=== PATIENT | female | born 1995 | race American Indian/Alaskan Native ===

== ENCOUNTER 2019-12-04 00:51 | Inpatient (IN) | payer OTHER ==
[2019-12-04] MEDS ORDERED: LACTATED RINGERS 1,000 ML IV ONE (01:47)
[2019-12-04 02:42] LABS: Bilirubin,Urine NEG (Negative); Blood,Urine MOD (Negative); Color,Urine Yellow (Yellow); Mucus,Urine FEW /HPF; Protein,Urine <15 mg/dL mg/dL (Negative)
[2019-12-04 02:43] LABS: WBC,Urine > 182.0 /HPF (0.0-6.0)
[2019-12-04 02:58] LABS: Amphetamine Screen,Urine PRESUMPTIVE NEGATIVE; Benzodiazepines Screen,Urine PRESUMPTIVE NEGATIVE; Cannabinoid Screen,Urine PRESUMPTIVE NEGATIVE; Cocaine Screen,Urine PRESUMPTIVE NEGATIVE; Methadone Screen,Urine PRESUMPTIVE NEGATIVE; Opiate Screen,Urine PRESUMPTIVE NEGATIVE
[2019-12-04] MEDS ORDERED: BETAMET ACET/BETAMET NA PH 6 MG/ML INJ 5 ML MDV IM ONE ×3 (04:14→04:36)
[2019-12-04] MEDS ORDERED: OXYTOCIN 20 UNIT/1000ML DRIP 20,000 MILLIUNITS/1,000 ML BAG IV ONE (04:19)
[2019-12-04] MEDS ORDERED: AMPICILLIN/NS 2 GM/100 ML 2 GM/100 ML BAG IV ONE (04:19)
[2019-12-04 04:48] LABS: Basophils % (Auto) 0.2 % (0.0-1.8); Eosinophils # (Auto) 0.1 K/mm3 (0.0-0.4); Eosinophils % (Auto) 0.8 % (0.0-4.3); Hematocrit 30.1 % (30.3-42.9); Hemoglobin 9.6 gm/dl (10.1-14.3); Lymphocytes # (Auto) 2.8 K/mm3 (1.2-5.4); Lymphocytes % (Auto) 16.2 % (13.4-35.0); Mean Corpuscular HGB Conc 32 % (30-34); Mean Corpuscular Volume 76 fl (79-97); Monocytes # (Auto) 1.5 K/mm3 (0.0-0.8); Monocytes % (Auto) 8.6 % (0.0-7.3); Platelet Count 248 K/mm3 (140-440); Red Blood Count 3.94 M/mm3 (3.65-5.03); Red Cell Distribution Width 15.9 % (13.2-15.2)
[2019-12-04] MEDS ORDERED: MAGNESIUM SULFATE 40GM/1000ML 40 GM/1,000 ML BAG IV ONE (04:50)
[2019-12-04] MEDS ORDERED: MAGNESIUM SULFATE 4 GM/100 ML BAG IV ONE ×2 (04:50→04:56)
[2019-12-04] MEDS ORDERED: MAGNESIUM SULFATE 40GM/1000ML 40 GM/1,000 ML BAG IV SCH (05:00)
--- NOTE | 2019-12-04 05:09 | History and Physical Report ---
History of Present Illness Date of examination: 12/04/19 (arrived to Triage with c/o ctx) Date of admission: 12/04/19 01:48 History of present illness: Pt here from [facility] Pt states she is 30 weeks Has been seeing her OB there [id number]. 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 Pt reports she had a blood transfusion after c/s Pt denies medical hx; denies ETOH,drug,smoking Past History - Obstetrical History Expected Date of Delivery: 02/09/20 Actual Gestation: 30 Week(s) 3 Day(s) : 3 Para: 1 (previous c/s) Hx # Term Pregnancies: 1 Number of Pregnancies: 0 Spontaneous Abortions: 0 Induced : 1 Number of Living Children: 1 Medications and Allergies Allergies Allergy/AdvReac Type Severity Reaction Status Date / Time tree and shrub pollen Allergy Unknown Verified 12/04/19 01:47 Home Medications Medication Instructions Recorded Confirmed Last Taken Type Nitrofurantoin [place]/M-Cryst 100 mg PO Q12HR #10 capsule 12/04/19 Unknown Rx [Macrobid] Active Meds: Active Medications Magnesium Sulfate (Magnesium Sulfate 4gm/100ml) 4 gm in 100 mls @ 300 mls/hr IV ONCE ONE Stop: 12/04/19 05:15 Magnesium Sulfate (Magnesium Sulfate 40gm/1000ml) 40 gm in 1,000 mls @ 50 mls/hr IV DIRECT MARLO - Vital Signs Vital signs: Vital Signs Pulse Pulse Ox 109 H 97 12/04/19 01:10 12/04/19 01:10 Temp Pulse Resp BP Pulse Ox 98.4 F 104 H 16 110/66 97 12/04/19 01:15 12/04/19 04:00 12/04/19 01:15 12/04/19 04:00 12/04/19 01:15 - Physical Exam Breasts: Positive: normal Cardiovascular: Regular rate, Normal S1, Normal S2 Lungs: Positive: Normal air movement Abdomen: Positive: normal appearance, soft, normal bowel sounds. Negative: distention, tenderness Genitourinary (Female): Positive: normal external genitalia (no ulcerations note d @ time of exam) Vulva: both: normal Vagina: Positive: normal moisture. Negative: discharge Cervix: Negative: lesion, discharge Uterus: Positive: normal size, normal contour Adnexa: both: normal Anus/Rectum: Positive: normal perianal skin, heme negative. Negative: rectal mass, hemorrhoids Extremities: Positive: normal Deep Tendon Reflex Grade: Normal +2 - Obstetrical FHR: category 1 Uterine Contraction Monitor Mode: External Cervical Dilatation: 3 (very thin lower uterine segment) Cervical Effacement Percentage: 100 (intact) station: -2 Uterine Contraction Pattern: Regular Uterine Tone Measurement Phase: Resting Uterine Contraction Intensity: Moderate Results Result Diagrams: 12/04/19 Unknown Abnormal lab results 12/04/19 12/04/19 Range/Units 01:45 Unknown [place] % (Auto) 8.6 H (0.0-7.3) % [place] # 1.5 H (0.0-0.8) K/mm3 Seg Neutrophils % 74.2 H (40.0-70.0) % Seg Neutrophils # 12.7 H (1.8-7.7) K/mm3 Urine WBC (Auto) > 182.0 H (0.0-6.0) /HPF All other labs normal. OB labs ordered Assessment and Plan - Patient Problems (1) 30 weeks gestation of Onset Date: ~12/04/19 Current Visit: Yes Status: Acute Plan to address problem: Pt here with c/o ctx Pt had been receiving care in [facility] Records on chart. Pt stated @ her last visit 11-12-19 she was measuring small Today US is 12days < than expected. BMZ given MGSO4 started made aware All orders in EMR. (2) Herpes Onset Date: ~12/04/19 Current Visit: Yes Status: Acute Plan to address problem: Perineum inspected no evidence of outbreak Pt states "last test" was negative. Will start Valtrex 1,000mg po for prophylaxis (3) Previous section Onset Date: ~12/04/19 Current Visit: Yes Status: Acute Plan to address problem: Pt desires a MIRANDA aware. C/S was in 2010 for HSV outbreak @ term
[2019-12-04 05:13] LABS: Hepatitis C Virus Antibody Non-Reactive (NonReactive)
[2019-12-04] MEDS ORDERED: TERBUTALINE 1 MG/1 ML INJ ONE (05:24)
--- NOTE | 2019-12-04 06:14 | Ultrasound Report ---
ULTRASOUND OBSTETRIC, limited Indication: wellbeing, labor Findings: There is a single intrauterine . BPD = 7.2 cm = 28 weeks, 6 day(s). Head circumference = 26.3 cm = 28 weeks, 5 day(s). Abdominal circumference = 24.4 cm = 28 weeks, 4 day(s). Femur length = 5.4 cm = 28 weeks, 4 day(s). Overall estimated sonographic age = 28 weeks, 5 day(s). heart rate is 143 beats per minute. Estimated weight is 1258 grams position is cephalic. Placenta is anterior and grade 1 . Amniotic fluid volume appears normal. Amniotic fluid index is 15.2 cm Impression: 1. Single living intrauterine with estimated sonographic age of 28 weeks, 5 day(s). 2. No sonographic abnormality identified. BIOPHYSICAL PROFILE FINDINGS: breathing movement: 2/2 movement: 2/2 posture and tone: 2/2 Qualitative amniotic fluid volume: 2/2 IMPRESSION: Total score for biophysical profile is 8/8 heart rate is 143 bpm Signer Name: Dank Murcia MD Signed: 12/04/2019 6:10 AM Workstation Name: [id number]
--- NOTE | 2019-12-04 06:59 | Event Note ---
Date: 12/04/19 (pt called out c/o pressure) ctx Q3-6 mod SVE 3,100,-[address]. Pt made aware that we do not do . She voiced understanding.
--- NOTE | 2019-12-04 07:07 | Anesthesia Consultation ---
Anesthesia Consult and Med Hx Date of service: 12/04/19 - Airway Anesthetic Teeth Evaluation: Good ROM Head & Neck: Adequate Mental/Hyoid Distance: Adequate Mallampati Class: Class II Intubation Access Assessment: Good - Pulmonary Exam CTA: Yes - Cardiac Exam Cardiac Exam: RRR - Pre-Operative Health Status ASA Pre-Surgery Classification: ASA2, Emergency Proposed Anesthetic Plan: Spinal - Pulmonary Hx Asthma: Yes (albuterol used last week) - Cardiovascular System Hx Hypertension: No - Central Nervous System Hx Seizures: No Hx Psychiatric Problems: No - Endocrine Hx Renal Disease: No Hx Hypothyroidism: No Hx Hyperthyroidism: No - Hematic Hx Anemia: Yes Hx Sickle Cell Disease: No - Other Systems Hx Alcohol Use: No
[2019-12-04] MEDS ORDERED: PROMETHAZINE 25 MG RECT SUPP PR PRN (07:08)
[2019-12-04] MEDS ORDERED: PROMETHAZINE 25 MG TAB PO PRN (07:08)
[2019-12-04] MEDS ORDERED: NALOXONE 0.4 MG/1 ML INJ IV PRN ×2 (07:08→10:02)
[2019-12-04] MEDS ORDERED: ONDANSETRON 4 MG/2 ML INJ IV PRN (07:08)
[2019-12-04] MEDS ORDERED: HYDROmorphone 1 MG/1 ML INJ IV PRN (07:08)
[2019-12-04] MEDS ORDERED: METOCLOPRAMIDE 10 MG/2 ML INJ IV ONE (08:00)
[2019-12-04] MEDS ORDERED: BICITRA ORAL LIQD 30ML PO ONE (08:00)
[2019-12-04] MEDS ORDERED: BUTORPHANOL 2 MG/1 ML INJ IV PRN (08:00)
[2019-12-04] MEDS ORDERED: fentaNYL 100 MCG/2 ML INJ IV SCH (08:00)
--- NOTE | 2019-12-04 08:07 | Event Note ---
Date: 12/04/19 patient states ctx are more painful and closer together. SVE done, no progress noted. No evidence of SROM, + light bloody show with SVE. discussed plan with Dr. Crisostomo to continue with mag sulfate for steroids. Patient's mother identified her self as "Marilin" on speaker phone, she was updated on plan of care with patient and s/o aware. Patient may have IV sedation after signing consents. s/o in room is her BOYFRIEND and they are not . All questions addressed.
[2019-12-04] MEDS: FAMOTIDINE 20 MG/2 ML INJ IV SCH (08:20)
[2019-12-04] MEDS ORDERED: METOCLOPRAMIDE 10 MG/2 ML INJ ONE (08:41)
[2019-12-04] MEDS ORDERED: OXYTOCIN 20 UNIT/1000ML DRIP 40,000 MILLIUNITS/2,000 ML BAG IV ONE (08:41)
[2019-12-04] MEDS ORDERED: FAMOTIDINE 20 MG/2 ML INJ IV ONE (08:41)
[2019-12-04] MEDS ORDERED: BICITRA ORAL LIQD 30ML ONE (08:41)
[2019-12-04] MEDS ORDERED: ceFAZolin/Water 2 GM/20 ML 2 GM/20 ML SYRINGE IV ONE (08:41)
[2019-12-04] MEDS ORDERED: DEXMEDETOMIDINE 200 MCG/2 ML VIAL IV ONE ×2 (08:53→10:25)
[2019-12-04] MEDS ORDERED: ONDANSETRON 4 MG/2 ML INJ ONE (08:53)
[2019-12-04] MEDS ORDERED: METHYLERGONOVINE MALEATE 0.2 MG/ML VIAL IM ONE ×2 (09:07→12:45)
[2019-12-04] MEDS ORDERED: miSOPROStol 200 MCG TAB ONE (09:07)
[2019-12-04] MEDS ORDERED: PROPOFOL 200 MG/20 ML VIAL IV ONE (09:15)
[2019-12-04] MEDS ORDERED: SODIUM CHLORIDE 0.9% IRR 1,500 ML BOTTLE IR ONE (09:21)
[2019-12-04] MEDS ORDERED: WATER FOR IRRIG STERILE 1,500 ML BOTTLE IR ONE (09:21)
[2019-12-04] MEDS ORDERED: MIDAZOLAM 2 MG/2 ML INJ ONE (09:26)
[2019-12-04] MEDS ORDERED: fentaNYL 100 MCG/2 ML INJ ONE (09:27)
[2019-12-04] MEDS ORDERED: dexAMETHasone 20 MG/5 ML VIAL ONE ×2 (09:35→10:25)
[2019-12-04] MEDS ORDERED: valACYclovir 500 MG TAB PO SCH (10:00)
[2019-12-04] MEDS ORDERED: AMPICILLIN/NS 1 GM/50 ML 1 GM/50 ML BAG IV SCH (10:00)
[2019-12-04] MEDS ORDERED: WITCH HAZEL/ GLYCERIN PAD TP PRN (10:02)
[2019-12-04] MEDS ORDERED: LANOLIN/ZINC/DIMETHICONE (LANSINOH) 7 GM TP PRN (10:02)
--- NOTE | 2019-12-04 10:08 | Event Note ---
Date: 12/04/19 At the time of my exam just prior to the c/s pt continued to have pain and there was no cervix that could be palpated only a bulging bag of water and presenting part seemed to be vtx but I was not clear. It was at this time an urgent c/s was called. No bleeding was noted on my exa, but possible abruption was noted on c/s(see op note).
--- NOTE | 2019-12-04 10:09 | Operative Report ---
Operative Report Operative Report: Date of procedure: 12/04/2019 Pre-operative diagnosis: 30.3 weeks gestation Previous section labor Post-operative diagnosis: Same plus possible placental abruption Procedure name(s): Repeat low transverse section via Pfannenstiel skin incision Surgeon: Dr. Crisostomo Continuous Improvement Specialist: NADIR Anesthesia: Gen. endotracheal anesthesia due to failed spinal EBL: 700 mL Urine output: 400 mL of clear urine out at the end of procedure Fluids: 2 L Findings: Liveborn female weight 1.15 kg Apgars of 5 and 8 at one and 5 minutes Grossly normal fallopian tubes and ovaries bilaterally Well-developed lower uterine segment With delivery of placenta that was moderate amount of bright red blood behind the placenta suspicious for possible placenta abruption Indications: Patient presented to triage complaining of painful uterine contractions that got progressively worse. Patient was placed on magnesium sulfate as well as was given terbutaline and was noted to have continued contractions. The patient was evaluated she was noted to have cervical dilation to the point where no cervix could be palpated and amniotic fluid membranes were bulging in the vaginal canal. It was also difficult to assess presenting part. Decision was made at this time to proceed to the operating room with urgent section. All risks benefits and alternatives were discussed with patient. She expressed understanding. Consents were signed and placed on the chart. Procedure: Patient was taking to the operating room. Patient was then prepped and draped in sterile fashion.after spinal anesthesia was found not to be adequate she was then placed under general endotracheal anesthesia. A low transverse skin incision was made with the scalpel through previous incisional scar and carried down to the underlying layer of fascia with the Apple. The fascia was then incised in the midline and this incision was extended bilaterally with the scalpel.The superior aspect of the fascia was grasped with Erin clamps tented upward and dissected off of the anterior rectus muscles with the scalpel. In similar fashion the inferior aspect of the fascia was grasped with Erin clamps tented upward and dissected off of the anterior rectus muscles. The rectus muscles were then bluntly divided in the midline. The peritoneum was identified and entered into sharply. A lower transverse uterine incision was made with the scalpel and extended bilaterally with blunt dissection. Artificial rupture of membranes was performed yielding clear amniotic fluid. The 's head was then delivered atraumatically. The anterior shoulder and rest of infant delivered without difficulty. The umb ilical cord was clamped x2. The cord was cut. The infant was then placed in sterile bassinet. The cord blood was collected. The placenta was manually extracted in its entirety. The uterus was exteriorized and cleared of all clots and debris. The uterine incision was closed using 0 Vicryl in a running locking fashion. A second imbricating layer of the same suture was then created. The posterior cul-de-sac was copiously irrigated. The uterus was returned to the abdomen. The gutters were also irrigated. The anterior rectus muscles were reapproximated using 3-0 Vicryl. The anterior rectus fascia was reapproximated using 0 Vicryl in a running fashion. The subcuticular fat was reapproximated using 2-0 Vicryl in a running fashion. The skin was reapproximated with 4-0 Monocryl in a subcuticular stitch. The patient tolerated the procedure well. Sponge lap and needle counts were all correct x3. Patient was taken to the recovery room awake and in stable condition.
[2019-12-04] MEDS ORDERED: SODIUM CHLORIDE 0.9% 100 ML ONE (10:25)
[2019-12-04] MEDS ORDERED: BUPIVACAINE/PF (0.5%) 5 MG/1 ML 30 ML VIAL INFILTRATI ONE (10:25)
[2019-12-04] MEDS ORDERED: LIDOCAINE MPF (2%) 20 MG/1 ML VIAL 5 ML ONE (10:26)
[2019-12-04] MEDS ORDERED: SUCCINYLCHOLINE CHLORIDE 200 MG/10 ML INJ MDV ONE (10:30)
[2019-12-04] MEDS ORDERED: PHENYLEPHRINE/NS 1,000 MCG/10 ML SYRINGE (OR USE) IV ONE (10:30)
[2019-12-04] MEDS: HYDROmorphone 1 MG/1 ML INJ IV PRN ×2 (10:50→11:20)
[2019-12-04] MEDS ORDERED: OXYTOCIN 20 UNIT/1000ML DRIP 20 UNITS/1,000 ML BAG IV SCH (11:00)
[2019-12-04] MEDS ORDERED: D5W/LACTATED RINGERS 1,000 ML IV SCH (11:00)
--- NOTE | 2019-12-04 11:43 | Post Anesthesia Evaluation ---
- Post Anesthesia Evaluation Patient Participated: Yes Airway Patent: Yes Stable Respiratory Function: Yes Nausea/Vomiting: No Temp > 96.8F: Yes Pain Manageable: Yes (QL block for PoP) Adequeate Hydration: Yes Anesthesia Complications: No Block Receding Appropriately: Yes Patient on Ventilator: No
--- NOTE | 2019-12-04 11:44 | Anesthesia Day of Surgery ---
Anesthesia Day of Surgery - Day of Surgery Patient Examined: Yes Patient H&P Reviewed: Yes Patient is NPO: Yes
[2019-12-04] MEDS: KETOROLAC 30 MG/1 ML INJ IV PRN ×2 (15:11→23:52)
[2019-12-04] MEDS: ceFAZolin/NS 1 GM/50 ML 1 GM/50 ML BAG IV SCH (18:45)
[2019-12-04] MEDS: oxyCODONE /ACETAMINOPHEN 5-325MG TAB PO PRN (18:45)
[2019-12-04 22:37] LABS: Hematocrit 27.2 % (30.3-42.9); Hemoglobin 8.8 gm/dl (10.1-14.3)
[2019-12-05] MEDS: ceFAZolin/NS 1 GM/50 ML 1 GM/50 ML BAG IV SCH (02:52)
[2019-12-05] MEDS: IBUPROFEN 800 MG TAB PO PRN (08:12)
--- NOTE | 2019-12-05 08:23 | Progress Note ---
Assessment and Plan - Patient Problems (1) Herpes Onset Date: ~12/04/19 Current Visit: Yes Status: Acute (2) delivery delivered Onset Date: ~12/04/19 Current Visit: Yes Status: Acute Plan to address problem: pt doing very well this AM. Req a work excuse for her job. Pt states she will go back to [place] to live. The FOB resides here in area and will come to see baby while in NICU. VSS FF below umb Lochia small Dressing D&I Stable S/p repeat c/s P; Continue pathway Advance as tolerated. Subjective - Subjective Date of service: 12/05/19 (Pt Sitting on edge of bed No c/o voiced) Principal diagnosis: Day #1 s/p Repeat c/s @ 30 weeks gestation Active labor Interval history: Pt here from [facility] Pt states she is 30 weeks Has been seeing her OB there [id number]. 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 Pt reports she had a blood transfusion after c/s Pt denies medical hx; denies ETOH,drug,smoking Patient reports: appetite normal, voiding normally, pain well controlled, ambulating normally : in NICU (stable per pt) Objective - Vital Signs Latest vital signs: Vital Signs Temp Pulse Resp BP BP BP Pulse Ox 12/05/19 04:36 98.0 F 82 18 95/47 95 12/05/19 01:30 98 F 88 18 100/47 96 12/04/19 20:52 98.4 F 98 H 20 107/51 94 12/04/19 18:45 20 12/04/19 15:34 98.0 F 100 H 18 116/69 94 12/04/19 15:11 20 12/04/19 14:21 97.2 F L 105 H 20 102/54 99 12/04/19 11:20 115 H 19 99/53 94 12/04/19 11:15 101 H 22 107/61 94 12/04/19 11:10 107 H 29 H 113/64 94 12/04/19 11:05 104 H 22 113/64 94 12/04/19 11:00 110 H 17 107/55 94 12/04/19 10:55 113 H 24 107/56 94 12/04/19 10:50 113 H 17 92/35 94 12/04/19 10:45 117 H 28 H 85/33 94 12/04/19 10:40 112 H 17 94/55 94 12/04/19 10:35 114 H 25 H 96/50 94 12/04/19 10:30 107 H 18 105/45 94 12/04/19 10:25 105 H 27 H 101/49 94 12/04/19 10:20 97.4 F L 106 H 33 H 107/51 94 12/04/19 10:17 97.4 F L 106 H 33 H 109/52 94 12/04/19 08:36 127 H 122/67 12/04/19 08:32 125 H 126/60 Intake and Output 12/04/19 12/05/19 12/05/19 22:59 06:59 14:59 Intake Total 530 480 Output Total 500 400 Balance 30 80 Intake: IV 50 ANCEF/NS 1 GM/50 ML 1 gm 50 In 50 ml @ 100 mls/hr IV Q8H [facility] Rx#:[id number] Oral 240 Intake, Free Water 240 480 Output: Urine 500 400 Indwelling Catheter 500 Void 400 Other: Total, Intake Amount 240 Total, Output Amount 100 200 - Exam Breasts: Present: normal Cardiovascular: Present: Regular rate Lungs: Present: Normal air movement Abdomen: Present: normal appearance, soft Uterus: Present: normal, fundal height below umbilicus Extremities: Present: normal Deep Tendon Reflex Grade: Normal +2 Incision: Present: normal, dry, intact, dressed (to be removed this AM) - Labs Labs: Abnormal lab results 12/04/19 12/04/19 Range/Units 08:14 21:52 Hgb 8.8 L (10.1-14.3) gm/dl Hct 27.2 L (30.3-42.9) % Magnesium 4.40 H (1.7-2.3) mg/dL
[2019-12-05] MEDS: DOCUSATE SODIUM 100 MG CAP PO SCH ×2 (09:53→22:06)
[2019-12-05] MEDS: FERROUS SULFATE 325 MG TAB PO SCH ×2 (09:54→22:06)
[2019-12-05] MEDS: FAMOTIDINE 20 MG/2 ML INJ IV SCH (10:02)
[2019-12-05] MEDS: oxyCODONE /ACETAMINOPHEN 5-325MG TAB PO PRN (15:13)
[2019-12-05] MEDS: HYDROcodone/ACETAMINOPHEN 5-325 MG TAB PO PRN (19:46)
[2019-12-06] MEDS: oxyCODONE /ACETAMINOPHEN 5-325MG TAB PO PRN ×2 (01:07→10:36)
[2019-12-06] MEDS: HYDROcodone/ACETAMINOPHEN 5-325 MG TAB PO PRN ×2 (06:55→17:48)
--- NOTE | 2019-12-06 08:55 | Progress Note ---
Assessment and Plan - Patient Problems (1) Herpes Onset Date: ~12/04/19 Current Visit: Yes Status: Acute (2) delivery delivered Onset Date: ~12/04/19 Current Visit: Yes Status: Acute Plan to address problem: Pt being assessed by Ada RN on my rounds. Pressure dressing removed Steri strips in place small amt blood noted in crease No active drainage. VSS FF below umb Lochia scant Pt stable s/p repeat c/s P: continue pathway D/C tomorrow. Subjective - Subjective Date of service: 12/06/19 (pt desires d/c tomorrow) Principal diagnosis: Day #2 s/p Repeat c/s @ 30 weeks gestation Active labor Interval history: Pt here from [facility] Pt states she is 30 weeks Has been seeing her OB there [id number]. 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 Pt reports she had a blood transfusion after c/s Pt denies medical hx; denies ETOH,drug,smoking Patient reports: appetite normal, voiding normally, pain well controlled, ambulating normally : in NICU Objective - Vital Signs Latest vital signs: Vital Signs Temp Pulse Resp BP BP Pulse Ox 12/06/19 06:55 18 12/06/19 02:07 18 12/06/19 01:07 18 12/06/19 00:00 98.6 F 77 18 97/53 12/05/19 20:46 18 12/05/19 19:46 18 12/05/19 16:12 98.0 F 86 18 113/61 97 12/05/19 11:47 97.9 F 94 H 18 103/53 98 Intake and Output 12/05/19 12/06/19 12/06/19 22:59 06:59 14:59 Intake Total 500 Balance 500 Intake: Oral 500 Other: Total, Intake Amount 200 # Voids Void 1 - Exam Breasts: Present: normal Cardiovascular: Present: Regular rate Lungs: Present: Normal air movement Abdomen: Present: normal appearance, soft, normal bowel sounds Uterus: Present: normal Extremities: Present: normal Incision: Present: normal, dry, intact
[2019-12-06] MEDS: FERROUS SULFATE 325 MG TAB PO SCH ×2 (10:27→21:19)
[2019-12-06] MEDS: DOCUSATE SODIUM 100 MG CAP PO SCH ×2 (10:27→21:19)
[2019-12-06] MEDS ORDERED: MAGNESIUM HYDROXIDE (MOM) ORAL LIQD UDC PO PRN (10:40)
[2019-12-06] MEDS: IBUPROFEN 800 MG TAB PO PRN (18:37)
[2019-12-07] MEDS: oxyCODONE /ACETAMINOPHEN 5-325MG TAB PO PRN (05:20)
--- NOTE | 2019-12-07 07:48 | Discharge Summary ---
Providers - Providers Date of Admission: 12/04/19 01:48 Date of discharge: 12/07/19 (Pt desires to go home.) Attending physician: GLENDY PAINTER Primary care physician: LIGHT OIL OPERATOR Hospitalization Reason for admission: section (Repeat) Delivery: (Repeat) Procedure: section (Repeat) Episiotomy: none Laceration: none Incision: normal, dry, intact, other (No s/sx of infection, no drainage noted.) Other procedures: none complications: none Discharge diagnosis: delivery [place] baby: female Hospital course: S: Pt doing well. Pain well controlled. Ambulating, passing flatus, and eating normally. Desires depo before discharge. O: VSS, adequate I&O's. Minimal bleeding noted on peripad. Incision dry, open to air, no drainage or s/sx of infection noted. A: 24 y.o. labor, rpt , now delivered, POD #3 P: Discharge home with instructions. Incision check in 1 week. Office number and address provided. Condition at discharge: Good Disposition: DC-01 TO HOME OR SELFCARE Plan - Discharge Medications Prescriptions: Docusate Sodium [Colace] 100 mg PO BID PRN #60 capsule PRN Reason: Constipation Ferrous Sulfate [Feosol 325 MG tab] 325 mg PO QDAY #60 tablet Nitrofurantoin [place]/M-Cryst [Macrobid] 100 mg PO Q12HR #10 capsule Ibuprofen [Motrin 800 MG tab] 800 mg PO Q8HR PRN #30 tablet PRN Reason: Pain, Moderate (4-6) oxyCODONE /ACETAMINOPHEN [Percocet 5/325] 1 tab PO Q4HR #30 tab - Provider Discharge Summary Activity: routine, no sex for 6 weeks, no heavy lifting 4 weeks, no strenuous exercise Diet: routine Instructions: routine Additional instructions: [] Smoking cessation referral if applicable(refer to patient education folder for contact #) [] Refer to [facility] Booklet Call your doctor immediately for: * Fever > 100.5 * Heavy vaginal bleeding ( >1 pad per hour) * Severe persistent headache * Shortness of breath * Reddened, hot, painful area to leg or breast * Drainage or odor from incision. * Keep incision clean and dry at all times and follow doctor's instructions regarding bathing/showering - Follow up plan Follow up: PRIMARY CARE,MD [Primary Care Provider] - 7 Days YESSICA ACOSTA CNM [Advanced Practice Nurse] - 7 Days (Congratulations!!! Please follow up with an incision check in 1 week with office of choice. If you do not currently have office of choice, [facility] office address and phone number provided for follow up. Take all pain medications as prescribed. If you need any assistance, please do not hesitate to give our office a call. [facility] [address] [facility], [address] ) Forms: [facility] Discharge Summary
[2019-12-07] MEDS ORDERED: medroxyPROGESTERone ACETATE 150 MG/ML SYRINGE IM SCH (09:00)
[2019-12-07] MEDS: FERROUS SULFATE 325 MG TAB PO SCH (09:22)
[2019-12-07] MEDS: DOCUSATE SODIUM 100 MG CAP PO SCH (09:22)
[2019-12-07 11:13] VITALS: BP 102/54
== END 2019-12-07 11:43 | disposition home or self-care (01) | DRG 786 ==
LOC: TRG 00:51 → OBSVTOIN 01:48 → LD 01:48 → OB 12:46
PROVIDERS: ADMIT Obstetrics & Gynecology; ATTEND Obstetrics & Gynecology
PROC: 10D00Z1 Extraction of Products of Conception, Low, Open Approach (ICD-10-PCS; principal; 2019-12-04)
DX: O99.02 Anemia complicating childbirth (principal); O60.14X0 Preterm labor third trimester with preterm delivery third trimester, not applicable or unspecified; O98.52 Other viral diseases complicating childbirth; O34.211 Maternal care for low transverse scar from previous cesarean delivery; B00.9 Herpesviral infection, unspecified; D64.9 Anemia, unspecified; O99.52 Diseases of the respiratory system complicating childbirth; J45.909 Unspecified asthma, uncomplicated; Z3A.30 30 weeks gestation of pregnancy; Z37.0 Single live birth
CPT/HCPCS: 36415; 76816; 76819; 80307; 81001; 83735; 85014; 85018; 85025; 86592; 86706; 86762; 86803; 86850; 86900; 86901; 87806; 88307; G0378; A6250; J0290; J0330; J0690; J0702; J1050; J1100; J1170; J1885; J2210; J2250; J2370; J2405; J2590; J2704; J2765; J3010; J3105; J3475; J3490; J7120; J7121